=== PATIENT | male | born 1940 | race Caucasian/White ===

== ENCOUNTER → 2018-01-12 09:14 | Outpatient (CLI) | payer MEDICARE, OTHER, SELFPAY ==
[2018-01-12 12:04] LABS: Blood Urea Nitrogen 22 mg/dL (9-20); Calcium 9.6 mg/dL (8.4-10.2); Carbon Dioxide 31 mmol/L (22-32); Chloride 101 mmol/L (98-107); Estimated Glomerular Filt Rate > 60.0 mL/min (>60); Glucose 88 mg/dL (80-110); Potassium 3.6 mmol/L (3.4-5.1); Sodium 142 mmol/L (137-145)
[2018-01-12 12:05] LABS: Alanine Aminotransferase 48 IU/L (21-72); Albumin 4.2 g/dL (3.5-5.0); Albumin Globulin Ratio 1.6 (1.0-2.8); Alkaline Phosphatase 79 U/L (38-126); Aspartate Aminotransferase 40 IU/L (17-59); Bilirubin Total 1.2 mg/dL (0.2-1.3); Cholesterol 170 mg/dL (140-199); Globulin 2.6 g/dL (1.7-4.1); HDL Cholesterol 58 mg/dL (40-60); LDL Cholesterol Calculated 91 mg/dL (<100); Total Protein 6.8 g/dL (6.3-8.2); Triglycerides 104 mg/dL (35-150)
[2018-01-12 12:06] LABS: HEMOLYSIS < 15 (0-50)
== END ==
PROVIDERS: PCP Internal Medicine; Visit Provider Internal Medicine
DX: I10 Essential (primary) hypertension (principal); E78.2 Mixed hyperlipidemia
CPT/HCPCS: 36415; 80053; 80061

== ENCOUNTER → 2018-07-13 08:18 | Outpatient (CLI) | payer MEDICARE, OTHER, SELFPAY ==
[2018-07-13 09:46] LABS: Alanine Aminotransferase 25 IU/L (21-72); Albumin 4.3 g/dL (3.5-5.0); Albumin Globulin Ratio 1.7 (1.0-2.8); Alkaline Phosphatase 82 U/L (38-126); Aspartate Aminotransferase 23 IU/L (17-59); BUN Creatinine Ratio 21.1 (6-22); Bilirubin Total 1.1 mg/dL (0.2-1.3); Blood Urea Nitrogen 19 mg/dL (9-20); Calcium 9.7 mg/dL (8.4-10.2); Carbon Dioxide 27 mmol/L (22-32); Chloride 101 mmol/L (98-107); Cholesterol 163 mg/dL (140-199); Estimated Glomerular Filt Rate > 60.0 mL/min (>60); Globulin 2.5 g/dL (1.7-4.1); Glucose 93 mg/dL (80-110); HDL Cholesterol 53 mg/dL (40-60); HEMOLYSIS < 15 (0-50); LDL Cholesterol Calculated 92 mg/dL (<100); Potassium 3.6 mmol/L (3.4-5.1); Sodium 138 mmol/L (137-145); Total Protein 6.8 g/dL (6.3-8.2); Triglycerides 92 mg/dL (35-150)
== END ==
PROVIDERS: Family Provider Internal Medicine; PCP Internal Medicine; Visit Provider Internal Medicine
DX: E78.2 Mixed hyperlipidemia (principal); I10 Essential (primary) hypertension
CPT/HCPCS: 36415; 80053; 80061

== ENCOUNTER → 2018-10-01 14:28 | Outpatient (CLI) | payer MEDICARE, OTHER, SELFPAY ==
--- NOTE | 2018-10-01 14:33 | DI.RAD.S_ITS ---
PROCEDURE: XR FOOT LT MIN 3V INDICATIONS: Left foot pain TECHNIQUE: 3 views of the foot were acquired. COMPARISON: None. FINDINGS: Bones: No fractures or dislocations. No suspicious bony lesions. Soft tissues: No tibiotalar joint effusion. Achilles tendon appears normal. IMPRESSION: No definite radiographic abnormality. If pain persists, consider cross sectional imaging such as CT or MRI for further assessment. Dictated by: Jovany Wang [facility] Interpreted: Grupo Anthony MD on 10/01/2018 at 17:02 Approved by: Grupo Anthony M.D. on 10/02/2018 at 9:03
== END ==
PROVIDERS: PCP Internal Medicine; Visit Provider Internal Medicine
DX: M79.672 Pain in left foot (principal)
CPT/HCPCS: 73630

== ENCOUNTER → 2019-01-06 08:01 | Outpatient (CLI) | payer MEDICARE, OTHER, SELFPAY ==
[2019-01-06 09:04] LABS: Alanine Aminotransferase 26 IU/L (21-72); Albumin 4.3 g/dL (3.5-5.0); Albumin Globulin Ratio 1.5 (1.0-2.8); Alkaline Phosphatase 97 U/L (38-126); Aspartate Aminotransferase 26 IU/L (17-59); Bilirubin Total 1.4 mg/dL (0.2-1.3); Blood Urea Nitrogen 18 mg/dL (9-20); Calcium 9.7 mg/dL (8.4-10.2); Carbon Dioxide 29 mmol/L (22-32); Chloride 102 mmol/L (98-107); Cholesterol 161 mg/dL (140-199); Estimated Glomerular Filt Rate > 60.0 mL/min (>60); Globulin 2.8 g/dL (1.7-4.1); Glucose 98 mg/dL (80-110); HDL Cholesterol 55 mg/dL (40-60); LDL Cholesterol Calculated 80 mg/dL (<100); Potassium 3.6 mmol/L (3.4-5.1); Sodium 138 mmol/L (137-145); Total Protein 7.1 g/dL (6.3-8.2); Triglycerides 128 mg/dL (35-150)
[2019-01-08 15:07] LABS: HEMOLYSIS < 15 (0-50); Uric Acid 6.6 mg/dL (3.5-8.5)
== END ==
PROVIDERS: PCP Internal Medicine; Visit Provider Internal Medicine
DX: E78.2 Mixed hyperlipidemia (principal); I10 Essential (primary) hypertension
CPT/HCPCS: 36415; 80053; 80061; 84550

== ENCOUNTER → 2019-05-12 11:52 | Outpatient (CLI) | payer MEDICARE, OTHER, SELFPAY ==
[2019-05-12 13:12] LABS: Uric Acid 5.8 mg/dL (3.5-8.5)
== END ==
PROVIDERS: PCP Internal Medicine; Referring Provider Internal Medicine; Visit Provider Internal Medicine
DX: M10.9 Gout, unspecified (principal)
CPT/HCPCS: 36415; 84550

== ENCOUNTER → 2019-07-05 10:03 | Outpatient (CLI) | payer MEDICARE, OTHER, SELFPAY ==
[2019-07-05 11:35] LABS: Alanine Aminotransferase 23 IU/L (<50); Albumin 4.3 g/dL (3.5-5.0); Albumin Globulin Ratio 1.4 (1.0-2.8); Alkaline Phosphatase 92 U/L (38-126); Aspartate Aminotransferase 33 IU/L (17-59); BUN Creatinine Ratio 20.4 (6-22); Bilirubin Total 1.1 mg/dL (0.2-1.3); Blood Urea Nitrogen 20 mg/dL (9-20); Carbon Dioxide 29 mmol/L (22-32); Chloride 104 mmol/L (98-107); Cholesterol 160 mg/dL (140-199); Estimated Glomerular Filt Rate > 60.0 mL/min (>60); Glucose 104 mg/dL (80-110); HDL Cholesterol 57 mg/dL (40-60); HEMOLYSIS < 15 (0-50); LDL Cholesterol Calculated 82 mg/dL (<100); Sodium 139 mmol/L (137-145); Total Protein 7.3 g/dL (6.3-8.2); Triglycerides 104 mg/dL (35-150)
== END ==
PROVIDERS: PCP Internal Medicine; Referring Provider Internal Medicine; Visit Provider Internal Medicine
DX: E78.2 Mixed hyperlipidemia (principal); I10 Essential (primary) hypertension
CPT/HCPCS: 36415; 80053; 80061

== ENCOUNTER → 2019-11-25 08:40 | Outpatient (CLI) | payer MEDICARE, OTHER, SELFPAY ==
[2019-11-25 13:21] LABS: Alanine Aminotransferase 14 IU/L (<50); Albumin 4.2 g/dL (3.5-5.0); Albumin Globulin Ratio 1.6 (1.0-2.8); Alkaline Phosphatase 124 U/L (38-126); Aspartate Aminotransferase 19 IU/L (17-59); BUN Creatinine Ratio 24.8 (6-22); Bilirubin Total 0.9 mg/dL (0.2-1.3); Blood Urea Nitrogen 25 mg/dL (9-20); Calcium 9.4 mg/dL (8.4-10.2); Carbon Dioxide 28 mmol/L (22-32); Chloride 104 mmol/L (98-107); Cholesterol 162 mg/dL (140-199); Estimated Glomerular Filt Rate > 60.0 mL/min (>60); Globulin 2.6 g/dL (1.7-4.1); Glucose 91 mg/dL (80-110); HDL Cholesterol 53 mg/dL (40-60); HEMOLYSIS < 15 (0-50); LDL Cholesterol Calculated 88 mg/dL (<100); Potassium 3.8 mmol/L (3.4-5.1); Sodium 141 mmol/L (137-145); Total Protein 6.8 g/dL (6.3-8.2); Triglycerides 106 mg/dL (35-150)
== END ==
PROVIDERS: PCP Internal Medicine; Referring Provider Internal Medicine; Visit Provider Internal Medicine
DX: E78.2 Mixed hyperlipidemia (principal); I10 Essential (primary) hypertension
CPT/HCPCS: 36415; 80053; 80061

== ENCOUNTER → 2020-11-24 08:22 | Outpatient (CLI) | payer MEDICARE, OTHER, SELFPAY ==
[2020-11-24 10:03] LABS: Alanine Aminotransferase 13 IU/L (<50); Albumin Globulin Ratio 1.5 (1.0-2.8); Alkaline Phosphatase 87 U/L (38-126); Aspartate Aminotransferase 19 IU/L (17-59); BUN Creatinine Ratio 21.3 (6-22); Bilirubin Total 1.2 mg/dL (0.2-1.3); Blood Urea Nitrogen 19 mg/dL (9-20); Calcium 9.6 mg/dL (8.4-10.2); Carbon Dioxide 27 mmol/L (22-32); Chloride 102 mmol/L (98-107); Cholesterol 137 mg/dL (140-199); Estimated Glomerular Filt Rate > 60.0 mL/min (>60); Globulin 2.6 g/dL (1.7-4.1); Glucose 91 mg/dL (80-110); HDL Cholesterol 58 mg/dL (40-60); HEMOLYSIS < 15 (0-50); LDL Cholesterol Calculated 62 mg/dL (<100); Potassium 3.7 mmol/L (3.4-5.1); Sodium 136 mmol/L (137-145); Total Protein 6.6 g/dL (6.3-8.2); Triglycerides 86 mg/dL (35-150)
== END ==
PROVIDERS: PCP Internal Medicine; Referring Provider Internal Medicine; Visit Provider Internal Medicine
DX: I10 Essential (primary) hypertension (principal); E78.2 Mixed hyperlipidemia
CPT/HCPCS: 36415; 80053; 80061

== ENCOUNTER → 2021-05-18 09:09 | Outpatient (CLI) | payer MEDICARE, OTHER, SELFPAY ==
[2021-05-18 10:10] LABS: Alanine Aminotransferase 14 IU/L (<50); Albumin 4.1 g/dL (3.5-5.0); Albumin Globulin Ratio 1.5 (1.0-2.8); Alkaline Phosphatase 79 U/L (38-126); Aspartate Aminotransferase 28 IU/L (17-59); BUN Creatinine Ratio 23.8 (6-22); Bilirubin Total 1.2 mg/dL (0.2-1.3); Blood Urea Nitrogen 24 mg/dL (9-20); Calcium 9.5 mg/dL (8.4-10.2); Carbon Dioxide 32 mmol/L (22-32); Chloride 107 mmol/L (98-107); Cholesterol 144 mg/dL (140-199); Estimated Glomerular Filt Rate > 60.0 mL/min (>60); Globulin 2.8 g/dL (1.7-4.1); Glucose 95 mg/dL (80-110); HDL Cholesterol 50 mg/dL (40-60); HEMOLYSIS < 15 (0-50); LDL Cholesterol Calculated 76 mg/dL (<100); Potassium 3.8 mmol/L (3.4-5.1); Sodium 139 mmol/L (137-145); Total Protein 6.9 g/dL (6.3-8.2); Triglycerides 91 mg/dL (35-150)
== END ==
PROVIDERS: PCP Internal Medicine; Referring Provider Internal Medicine; Visit Provider Internal Medicine
DX: I10 Essential (primary) hypertension (principal); E78.2 Mixed hyperlipidemia
CPT/HCPCS: 36415; 80053; 80061

== ENCOUNTER 2022-11-06 23:01 | Emergency (ER) | payer MEDICARE, OTHER, SELFPAY ==
[2022-11-06 23:06] VITALS: BP 170/93; PULSE 82; RESP 16; TEMP 36.9; O2SAT 98; BMI 26.6
--- NOTE | 2022-11-06 23:43 | ED_ITS ---
HPI - General Adult <Malik Carter DO - Last Filed: 11/11/22 19:08> General Chief complaint: Altered Mental Status Stated complaint: AMS Time Seen by Provider: 11/06/22 23:07 Source: family and EMS Mode of arrival: EMS Limitations: altered mental status History of Present Illness HPI narrative: Patient is an 82-year-old male. Has a history of dementia. Review his medical record shows that he has not had any behavioral disturbances with this. 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 They live at home. His recently had to be admitted to the hospital. Patient's sister and her arrived from out of town to take care of the patient while his was in the hospital. Apparently they have been trying to take care of the patient for the past day or so. They happened staying at a local hotel. I am unsure as to why they have not been staying at the patient's house. Because of the sudden nature of the patient's needing admitted to the hospital his sister and her have had quite a bit of difficulty organizing the patient's medications. Apparently he has been out of medications for the past couple days. This evening they were at hotel. The patient became very aggressive. He is confused but this appears to be baseline. EMS was called. The patient is unable to provide any HPI or review of systems. Patient's family does not know what medications he is supposed to be taking. Related Data Home Medications Medication Instructions Recorded Confirmed ASPIRIN (Aspirin Low Dose) 81 mg PO QDAY ##0 01/29/10 09/30/22 cholecalciferol (vitamin D3) 125 5,000 unit PO ##0 01/03/17 09/30/22 mcg (5,000 unit) capsule cyanocobalamin (vitamin B-12) 5,000 mcg PO ##0 01/03/17 09/30/22 5,000 mcg disintegrating tablet Previous Rx's Medication Instructions Recorded memantine 10 mg tablet 10 mg PO BID #180 tabs 11/20/21 simvastatin 20 mg tablet See Rx Instructions .Route 06/11/22 .COMPLEX #45 tabs galantamine 24 mg 24 hr 24 mg PO QAM #90 caps 10/28/22 capsule,extended release olanzapine 5 mg disintegrating 5 mg PO BID #20 tabs 11/08/22 tablet (Zyprexa Zydis) olanzapine 5 mg disintegrating 5 mg PO QID PRN behavioral 11/08/22 tablet (Zyprexa Zydis) disturbance #30 tabs lorazepam 2 mg tablet 2 mg PO TID PRN agitation #30 tabs 11/11/22 Allergies Allergy/AdvReac Type Severity Reaction Status Date / Time JENNIFER Inhibitors Allergy Mild COUGH/ Verified 09/30/22 13:45 [JENNIFER INHIBITORS] UNSURE/ PATIENT STATES HE DOESN'T HAVE ANY SENSITIVIT atropine [ATROPINE] Allergy Unknown Verified 09/30/22 13:45 Review of Systems <Malik Carter DO - Last Filed: 11/11/22 19:08> Review of Systems ROS Unobtainable: Unobtainable due to mental condition Patient History <Malik Carter DO - Last Filed: 11/11/22 19:08> Medical History Cataracts, bilateral (~2009) Chicken pox Cognitive disorder (08/16/16) Dementia (~2013) Essential hypertension Fecal incontinence Hematuria History of hemodialysis Measles Mixed hyperlipidemia Mumps Restless leg syndrome Seasonal allergies Vision disorder Surgical History (Updated 01/15/18 @ 14:57 by Beau Harris MD) Anesthesia History of eye surgery History of tonsillectomy (~1946) Status post hernia repair (~1989) Status post rotator cuff repair (~1999) Family History (Updated 08/08/16 @ 00:00 by Conversion Provider) Father Family hx-leukemia Cancer Mother Heart disease Alzheimer's disease Sister Family history of MS (multiple sclerosis) Cancer MS (multiple sclerosis) Sister Family history of MS (multiple sclerosis) MS (multiple sclerosis) Brother No problems noted. Brother No problems noted. Social History Smoking Status: Never smoker Smoking Status: Never smoker Exam <Malik Carter DO - Last Filed: 11/11/22 19:08> Initial Vital Signs Initial Vital Signs: Vital Signs Temperature 98.4 F 11/06/22 23:06 Pulse Rate 82 11/06/22 23:06 Respiratory Rate 16 11/06/22 23:06 Blood Pressure 170/93 H 11/06/22 23:06 Pulse Oximetry 98 11/06/22 23:06 Oxygen Delivery Method Room Air 11/06/22 23:06 Const General: comfortable and No ill appearing HENMT Head: normal to inspection Resp Effort & Inspection: normal respiratory effort Auscultation: clear to auscultation bilaterally Cardio Rate: regular rate Rhythm: regular rhythm GI Inspection: normal to inspection Neuro Other: Patient is ambulatory. He does follow commands but speaks just words and sounds. Extrem Other: No gross deformities. <Willa Barron, DO - Last Filed: 11/16/22 18:47> Initial Vital Signs Initial Vital Signs: Vital Signs Temperature 98.4 F 11/06/22 23:06 Pulse Rate 82 11/06/22 23:06 Respiratory Rate 16 11/06/22 23:06 Blood Pressure 170/93 H 11/06/22 23:06 Pulse Oximetry 98 11/06/22 23:06 Oxygen Delivery Method Room Air 11/06/22 23:06 Course <aMlik Carter, DO - Last Filed: 11/11/22 19:08> Orders Ordered: Discontinued Medications Diphenhydramine HCl (Diphenhydramine 50 Mg/Ml Vial) 25 mg IM NOW ONE Stop: 11/07/22 04:02 Last Admin: 11/07/22 04:08 Dose: 25 mg Documented By: CORNELL Diphenhydramine HCl (Diphenhydramine 50 Mg/Ml Vial) 25 mg IM NOW ONE Stop: 11/07/22 13:47 Last Admin: 11/07/22 13:58 Dose: 25 mg Documented By: AVELINO Haloperidol (Haloperidol 5 Mg Tablet) 5 mg PO NOW ONE Stop: 11/07/22 03:38 Last Admin: 11/07/22 07:22 Dose: Not Given Documented By: TORRES Haloperidol (Haloperidol 5 Mg/Ml Vial) 5 mg IM NOW ONE Stop: 11/07/22 03:40 Last Admin: 11/07/22 03:42 Dose: 5 mg Documented By: RENEE Haloperidol (Haloperidol 5 Mg/Ml Vial) 5 mg IM NOW ONE Stop: 11/07/22 13:35 Last Admin: 11/07/22 14:00 Dose: 5 mg Documented By: SPF Lorazepam (Lorazepam 0.5 Mg Tablet) 1 mg PO NOW ONE Stop: 11/07/22 01:27 Last Admin: 11/07/22 01:30 Dose: 1 mg Documented By: SB Lorazepam (Lorazepam 0.5 Mg Tablet) 1 mg PO NOW ONE Stop: 11/07/22 02:43 Last Admin: 11/07/22 03:06 Dose: 1 mg Documented By: RENEE Lorazepam (Lorazepam 2 Mg/Ml Inj) 1 mg IM NOW ONE Stop: 11/07/22 04:02 Last Admin: 11/07/22 04:08 Dose: 1 mg Documented By: CORNELL Lorazepam (Lorazepam 2 Mg/Ml Inj) 2 mg IM NOW ONE Stop: 11/07/22 04:37 Last Admin: 11/07/22 04:40 Dose: 2 mg Documented By: CORNELL Memantine (Memantine Hcl 5 Mg Tablet) 10 mg PO BID [facility] Last Admin: 11/08/22 08:22 Dose: 10 mg Documented By: Admin: 11/08/22 07:56 Dose: Not Given Documented By: Admin: 11/08/22 00:45 Dose: Not Given Documented By: Admin: 11/07/22 00:09 Dose: 10 mg Documented By: RENEE Olanzapine (Olanzapine 2.5 Mg Tablet) 5 mg PO BID [facility] Last Admin: 11/08/22 08:22 Dose: 5 mg Documented By: Admin: 11/07/22 20:45 Dose: 5 mg Documented By: AVELINO Olanzapine (Olanzapine 10 Mg Vial) 5 mg IM NOW ONE Stop: 11/08/22 01:37 Last Admin: 11/08/22 06:00 Dose: Not Given Documented By: KEYUR Olanzapine (Olanzapine Odt 10 Mg Tab) 5 mg PO NOW ONE Stop: 11/08/22 01:42 Last Admin: 11/08/22 01:57 Dose: 5 mg Documented By: KEYUR Olanzapine (Olanzapine 2.5 Mg Tablet) 5 mg PO BID PRN PRN Reason: Agitation Last Admin: 11/08/22 14:16 Dose: 5 mg Documented By: CARLOS Quetiapine Fumarate (Quetiapine 25 Mg Tablet) 25 mg PO NOW ONE Stop: 11/06/22 23:45 Last Admin: 11/07/22 00:10 Dose: 25 mg Documented By: RENEE Vital Signs Vital signs: Vital Signs - 8 hr 11/08/22 07:32 11/08/22 07:35 11/08/22 07:35 Pulse Rate 57 L Blood Pressure Pulse Oximetry 99 99 98 11/08/22 11:41 11/08/22 11:43 11/08/22 11:43 Pulse Rate Blood Pressure 132/62 Pulse Oximetry 98 98 11/08/22 11:45 Pulse Rate 70 Blood Pressure Pulse Oximetry 98 <Willa Barron, DO - Last Filed: 11/16/22 18:47> Orders Ordered: Discontinued Medications Diphenhydramine HCl (Diphenhydramine 50 Mg/Ml Vial) 25 mg IM NOW ONE Stop: 11/07/22 04:02 Last Admin: 11/07/22 04:08 Dose: 25 mg Documented By: CORNELL Diphenhydramine HCl (Diphenhydramine 50 Mg/Ml Vial) 25 mg IM NOW ONE Stop: 11/07/22 13:47 Last Admin: 11/07/22 13:58 Dose: 25 mg Documented By: AVELINO Haloperidol (Haloperidol 5 Mg Tablet) 5 mg PO NOW ONE Stop: 11/07/22 03:38 Last Admin: 11/07/22 07:22 Dose: Not Given Documented By: TORRES Haloperidol (Haloperidol 5 Mg/Ml Vial) 5 mg IM NOW ONE Stop: 11/07/22 03:40 Last Admin: 11/07/22 03:42 Dose: 5 mg Documented By: RENEE Haloperidol (Haloperidol 5 Mg/Ml Vial) 5 mg IM NOW ONE Stop: 11/07/22 13:35 Last Admin: 11/07/22 14:00 Dose: 5 mg Documented By: AVELINO Lorazepam (Lorazepam 0.5 Mg Tablet) 1 mg PO NOW ONE Stop: 11/07/22 01:27 Last Admin: 11/07/22 01:30 Dose: 1 mg Documented By: RENEE Lorazepam (Lorazepam 0.5 Mg Tablet) 1 mg PO NOW ONE Stop: 11/07/22 02:43 Last Admin: 11/07/22 03:06 Dose: 1 mg Documented By: RENEE Lorazepam (Lorazepam 2 Mg/Ml Inj) 1 mg IM NOW ONE Stop: 11/07/22 04:02 Last Admin: 11/07/22 04:08 Dose: 1 mg Documented By: CORNELL Lorazepam (Lorazepam 2 Mg/Ml Inj) 2 mg IM NOW ONE Stop: 11/07/22 04:37 Last Admin: 11/07/22 04:40 Dose: 2 mg Documented By: CORNELL Memantine (Memantine Hcl 5 Mg Tablet) 10 mg PO BID [facility] Last Admin: 11/08/22 08:22 Dose: 10 mg Documented By: Admin: 11/08/22 07:56 Dose: Not Given Documented By: AMDoyle Admin: 11/08/22 00:45 Dose: Not Given Documented By: Admin: 11/07/22 00:09 Dose: 10 mg Documented By: RENEE Olanzapine (Olanzapine 2.5 Mg Tablet) 5 mg PO BID [facility] Last Admin: 11/08/22 08:22 Dose: 5 mg Documented By: Admin: 11/07/22 20:45 Dose: 5 mg Documented By: AVELINO Olanzapine (Olanzapine 10 Mg Vial) 5 mg IM NOW ONE Stop: 11/08/22 01:37 Last Admin: 11/08/22 06:00 Dose: Not Given Documented By: KEYUR Olanzapine (Olanzapine Odt 10 Mg Tab) 5 mg PO NOW ONE Stop: 11/08/22 01:42 Last Admin: 11/08/22 01:57 Dose: 5 mg Documented By: KEYUR Olanzapine (Olanzapine 2.5 Mg Tablet) 5 mg PO BID PRN PRN Reason: Agitation Last Admin: 11/08/22 14:16 Dose: 5 mg Documented By: CARLOS Quetiapine Fumarate (Quetiapine 25 Mg Tablet) 25 mg PO NOW ONE Stop: 11/06/22 23:45 Last Admin: 11/07/22 00:10 Dose: 25 mg Documented By: RENEE Vital Signs Vital signs: Vital Signs - 8 hr 11/08/22 07:32 11/08/22 07:35 11/08/22 07:35 Pulse Rate 57 L Blood Pressure Pulse Oximetry 99 99 98 11/08/22 11:41 11/08/22 11:43 11/08/22 11:43 Pulse Rate Blood Pressure 132/62 Pulse Oximetry 98 98 11/08/22 11:45 Pulse Rate 70 Blood Pressure Pulse Oximetry 98 Medical Decision Making <Malik Carter DO - Last Filed: 11/11/22 19:08> Medical Records Medical records reviewed: Yes I reviewed the patient's medical records. Lab Data Lab results reviewed: Yes I reviewed the patient's lab results. 11/07/22 00:08 11/07/22 00:08 Labs: Lab Results 11/07/22 11/07/22 Range/Units 00:08 00:08 WBC 10.0 (4.5-11.0) X10^3/uL RBC 4.09 L (4.5-5.9) X10^6/uL Hgb 13.5 (13.5-17.5) g/dL Hct 39.3 L (41-53) % MCV 96.2 (80-100) fL MCH 33.1 (26-34) PG MCHC 34.4 (30-36) % RDW 13.8 (11.6-14.8) % Plt Count 113 L (150-400) X10^3/uL Neut % (Auto) 66.8 (50-75) % Lymph % (Auto) 19.9 L (25-40) % Owen % (Auto) 10.3 (3-14) % Eos % (Auto) 2.2 (2-4) % Baso % (Auto) 0.8 (0-2) % Neut # (Auto) 6700 (9447-1862) /uL Lymph # (Auto) 2000 (7823-5745) /uL Owen # (Auto) 1000 H (0-900) /uL Eos # (Auto) 200 (0-450) /uL Baso # (Auto) 100 (0-100) /uL Plt Morphology Comment * RBC Morphology Normal morphology Sodium 134 L (137-145) mmol/L Potassium 3.7 (3.4-5.1) mmol/L Chloride 105 (98-107) mmol/L Carbon Dioxide 22 (22-32) mmol/L BUN 25 H (9-20) mg/dL Creatinine 0.88 (0.66-1.25) mg/dL Estimated GFR > 60 (>60) mL/min BUN/Creatinine Ratio 28.4 H (6-22) Glucose 99 (80-110) mg/dL Calcium 8.6 (8.4-10.2) mg/dL Point of Care Testing Glucose POC 115 Urine Dip Bedside Urine Glucose Negative Bedside Urine Bilirubin - Negative Bedside Urine Ketone - Negative Urine Specific [place] 1.015 Bedside Urine Occult Blood - Negative Bedside Urine pH 6.0 Bedside Urine Protein - Negative Bedside Urine Urobilinogen - Negative Bedside Urine Nitrite - Negative Bedside Urine Leukocytes - Negative Esterase Point of care testing: Point of Care Testing Glucose POC 115 Urine Dip Bedside Urine Glucose Negative Bedside Urine Bilirubin - Negative Bedside Urine Ketone - Negative Urine Specific [place] 1.015 Bedside Urine Occult Blood - Negative Bedside Urine pH 6.0 Bedside Urine Protein - Negative Bedside Urine Urobilinogen - Negative Bedside Urine Nitrite - Negative Bedside Urine Leukocytes - Negative Esterase Imaging Data CT - cervical spine: Radiologist's Impression: PROCEDURE:? CT CERVICAL SPINE WO CON ? INDICATIONS:? fall ? TECHNIQUE:? Noncontrast 3 mm thick sections acquired from the skull base to the T4 level.? Sagittal and coronal reformats were then constructed.? For radiation dose reduction, the following was used:? automated exposure control, adjustment of mA and/or kV according to patient size.? ? COMPARISON:? None. ? FINDINGS:? Image quality:? Excellent.? ? Bones:? No fractures or subluxation.? There is multilevel degenerative disc disease and facet arthropathy.? Visualized superior ribs are intact.? ? Soft tissues:? Prevertebral soft tissues are normal in thickness.? No paravertebral hematomas.? No apical pneumothoraces.? ? ? IMPRESSION:? ? 1. No acute fracture or subluxation.? CTA - brain/neck: Radiologist's Impression: PROCEDURE:? CT HEAD/BRAIN WO CON ? INDICATIONS:? fall ? TECHNIQUE:? Noncontrast 4.5 mm thick angled axial sections acquired from the foramen magnum to the vertex, with coronal and sagittal reformats.? For radiation dose reduction, the following was used:? automated exposure control, adjustment of mA and/or kV according to patient size.? ? COMPARISON:? None. ? FINDINGS:? Image quality:? Diagnostic.? ? CSF spaces:? Basal cisterns are patent.? No extra-axial fluid collections.? There is moderate cerebral volume loss, with resultant ventricular and sulcal prom inence.? ? Brain:? No intracranial hemorrhage, mass, or mass effect.? There are subcortical, periventricular and deep white matter hypodensities consistent with moderate chronic small vessel ischemic changes.? The whipple-white matter junction appears preserved.? There is intracranial internal carotid artery atherosclerosis.? ? Skull and face:? Calvarium and visualized facial bones appear intact, without suspicious lesions.? ? Sinuses:? Visualized sinuses and mastoids are clear.? ? IMPRESSION:? ? 1. No acute intracranial abnormality. ? 2. Moderate cerebral volume loss and chronic white matter small vessel ischemic changes. [facility] Narrative Medical decision making narrative: Review the patient's medical record shows that he is on some long-term Alzheimer's disease medications but does not appear to be on any behavioral mo dification medications such as Seroquel. Initially upon arrival the patient was calm. He was directable but did seem to be very impulsive. He was given a dose of Seroquel. Over the course of his stay here in the emergency department he did have a period of time where he became very acutely agitated. We attempted multiple different medications to include Haldol and Benadryl and also multiple doses of Ativan. After an extended period of time and multiple aliquots of small doses of medication the patient did become more sedated. He then rested comfortably. His labs are unremarkable. According to his last primary doctor's note I feel that the patient is most likely at baseline with regard to his mental status. There was no indication for admission to the hospital. Feel that it is unsafe to discharge the patient home in his current living situation. Social work consult placed. Care turned over to day provider to follow-up and disposition. 11/07/22 Mank: Patient slept for most of the day, [facility] did speak with family. They are looking into memory care which is likely the best place for this individual. Patient did become somewhat agitated during the daytime not to the level he was overnight but was refusing oral medications so was given additional dose of IM Haldol and Benadryl. Dr. Levy was unable to come to the department but did give recommendations over the phone and suspect the patient has dementia and some reported prior behavioral issues being out of his normal environment, his is currently in the hospital and he is with new and different people on a regular basis has caused him to be more reactive than typical. He recommends olanzapine ODT 5 mg b.i.d. with 5 mg as needed. [facility] spoke with family will monitor overnight. Patient signed out to Dr. Carter. Dr carter: Received turned over. Reviewed the patient's events throughout the day. Earlier in the evening the patient did a unwitnessed fall in his room. He would crawled out of bed on his own despite both guard rails being up and the bed being in a slightly Trendelenburg position. Patient had obviously urinated on himself most likely prior to him getting up and falling. Initially there was no apparent injury. A head CT and cervical spine CT were ordered and this did not show any acute pathology. Patient did not have any apparent extremity injuries. He was able to stand on his own afterwards with some help. Patient has been calm since that time. He did tolerate a small amount of intake. Care was turned over to Dr. barron to continue to observe and disposition. <Willa Barron, DO - Last Filed: 11/16/22 18:47> Lab Data Labs: Lab Results 11/07/22 11/07/22 Range/Units 00:08 00:08 WBC 10.0 (4.5-11.0) X10^3/uL RBC 4.09 L (4.5-5.9) X10^6/uL Hgb 13.5 (13.5-17.5) g/dL Hct 39.3 L (41-53) % MCV 96.2 (80-100) fL MCH 33.1 (26-34) PG MCHC 34.4 (30-36) % RDW 13.8 (11.6-14.8) % Plt Count 113 L (150-400) X10^3/uL Neut % (Auto) 66.8 (50-75) % Lymph % (Auto) 19.9 L (25-40) % Owen % (Auto) 10.3 (3-14) % Eos % (Auto) 2.2 (2-4) % Baso % (Auto) 0.8 (0-2) % Neut # (Auto) 6700 (3560-6680) /uL Lymph # (Auto) 2000 (7674-4583) /uL Owen # (Auto) 1000 H (0-900) /uL Eos # (Auto) 200 (0-450) /uL Baso # (Auto) 100 (0-100) /uL Plt Morphology Comment * RBC Morphology Normal morphology Sodium 134 L (137-145) mmol/L Potassium 3.7 (3.4-5.1) mmol/L Chloride 105 (98-107) mmol/L Carbon Dioxide 22 (22-32) mmol/L BUN 25 H (9-20) mg/dL Creatinine 0.88 (0.66-1.25) mg/dL Estimated GFR > 60 (>60) mL/min BUN/Creatinine Ratio 28.4 H (6-22) Glucose 99 (80-110) mg/dL Calcium 8.6 (8.4-10.2) mg/dL Point of Care Testing Glucose POC 115 Urine Dip Bedside Urine Glucose Negative Bedside Urine Bilirubin - Negative Bedside Urine Ketone - Negative Urine Specific [place] 1.015 Bedside Urine Occult Blood - Negative Bedside Urine pH 6.0 Bedside Urine Protein - Negative Bedside Urine Urobilinogen - Negative Bedside Urine Nitrite - Negative Bedside Urine Leukocytes - Negative Esterase Point of care testing: Point of Care Testing Glucose POC 115 Urine Dip Bedside Urine Glucose Negative Bedside Urine Bilirubin - Negative Bedside Urine Ketone - Negative Urine Specific [place] 1.015 Bedside Urine Occult Blood - Negative Bedside Urine pH 6.0 Bedside Urine Protein - Negative Bedside Urine Urobilinogen - Negative Bedside Urine Nitrite - Negative Bedside Urine Leukocytes - Negative Esterase MDM Narrative Medical decision making narrative: Review the patient's medical record shows that he is on some long-term Alzheimer's disease medications but does not appear to be on any behavioral modification medications such as Seroquel. Initially upon arrival the patient was calm. He was directable but did seem to be very impulsive. He was given a dose of Seroquel. Over the course of his stay here in the emergency department he did have a period of time where he became very acutely agitated. We attempted multiple different medications to include Haldol and Benadryl and also multiple doses of Ativan. After an extended period of time and multiple aliqu ots of small doses of medication the patient did become more sedated. He then rested comfortably. His labs are unremarkable. According to his last primary doctor's note I feel that the patient is most likely at baseline with regard to his mental status. There was no indication for admission to the hospital. Feel that it is unsafe to discharge the patient home in his current living situation. Social work consult placed. Care turned over to day provider to follow-up and disposition. 11/07/22 Mank: Patient slept for most of the day, [facility] did speak with family. They are looking into memory care which is likely the best place for this individual. Patient did become somewhat agitated during the daytime not to the level he was overnight but was refusing oral medications so was given additional dose of IM Haldol and Benadryl. Dr. Levy was unable to come to the department but did give recommendations over the phone and suspect the patient has dementia and some reported prior behavioral issues being out of his normal environment, his is currently in the hospital and he is with new and different people on a regular basis has caused him to be more reactive than typical. He recommends olanzapine ODT 5 mg b.i.d. with 5 mg as needed. [facility] spoke with family will monitor overnight. Patient signed out to Dr. Carter. Dr carter: Received turned over. Reviewed the patient's events throughout the day. Earlier in the evening the patient did a unwitnessed fall in his room. He would crawled out of bed on his own despite both guard rails being up and the bed being in a slightly Trendelenburg position. Patient had obviously urinated on himself most likely prior to him getting up and falling. Initially there was no apparent injury. A head CT and cervical spine CT were ordered and this did not show any acute pathology. Patient did not have any apparent extremity inju andrew. He was able to stand on his own afterwards with some help. Patient has been calm since that time. He did tolerate a small amount of intake. Care was turned over to Dr. barron to continue to observe and disposition. 11/08/22 Robby: Patient signed out to myself overnight. Patient was reported to have night. He did have head CT and C-spine which not show any acute change or no apparent disabilities. Was able to stand afterwards reportedly with some help. Patient did take his oral Zyprexa last dose was at 2:00 a.m. she did take at that time. Last dose of IM medications was yesterday at 2:00 p.m. patient has not been very agreeable to tablets which is why ODT medication was ordered. I did speak with patient's family this morning, his is upstairs they are planning to pick her up and take her to family member's house with hospice until bed is available to facility for a week. Their goal is to warehouse picker the patient today and take him with them. We did review that we have added the new medication that it is to be given twice daily regardless of symptoms and that they can have additional PRN dose of up to 20 mg or 4 doses total in a 24 hour. They have had quite a bit of extensive discussion with [facility] here in the department yesterday. Patient's family here after meeting with social work up stairs with patient's . They were initially reluctant to take patient but found facility that can provide respite care, patient was discharged home to family. He has had at least 2 doses of oral medication and was able to be dressed, eat add much more appropriate than when he initially was here in the department and feels appropriate for discharge home with family at this time. Discussed that if they feel unsafe or have other concerns at any time to return here or to the closest emergency department. Discharge Plan Departure Patient Disposition: Home Clinical Impression: Dementia with behavioral disturbance Activity Restrictions/Additional Instructions: Continue your home prescribed medications. A prescription for Zyprexa 5 mg twice daily has been sent to [facility] in [place]. This medication 2 centigrade rapidly in the mouth and does not require sw allowing. You can get an additional 5 mg of Zyprexa up to every 6 hours. Maximum dose for 24 hours is 20 mg. Please return or go to the closest facility for fevers, sudden changes in mental status, difficulty with breathing, vomiting, black or bloody stools, patient is having difficulty with urination, or if there behavior is becoming unsafe for you or themselves at any time. Prescriptions: New olanzapine [Zyprexa Zydis] 5 mg tablet,disintegrating 5 mg PO QID PRN (Reason: behavioral disturbance) Qty: 30 0RF Rx Instructions: Please give 5 mg p.o. b.i.d. regardless of symptoms you may give an ad ditional 5 mg every 6 hours as needed for a total of 20 mg in 24 hours. olanzapine [Zyprexa Zydis] 5 mg tablet,disintegrating 5 mg PO BID Qty: 20 0RF Rx Instructions: 5 mg p.o. b.i.d. regardless of symptoms, patient can have an additional 5 mg every 6 hours for a total of 20 mg in 24 hours. No Action ASPIRIN (Aspirin Low Dose) 81 mg PO QDAY Qty: 0 cholecalciferol (vitamin D3) 5,000 UNIT capsule 5,000 unit PO Qty: 0 cyanocobalamin (vitamin B-12) 5,000 MCG tablet,disintegrating 5,000 mcg PO Qty: 0 memantine 10 mg tablet 10 mg PO BID Qty: 180 3RF simvastatin 20 mg tablet See Rx Instructions .ROUTE .COMPLEX Qty: 45 1RF Dose Instruction: Take 1/2 (one-half) tablet by mouth once daily Rx Instructions: Take 1/2 (one-half) tablet by mouth once daily galantamine 24 mg capsule,ext rel. pellets 24 hr 24 mg PO QAM Qty: 90 3RF lorazepam 2 mg tablet 2 mg PO TID PRN (Reason: agitation) Qty: 30 2RF Referrals: Beau Harris MD [Primary Care Provider] - Stand Alone Forms: Patient Portal/API
--- NOTE | 2022-11-06 23:45 | PC.NURSE ---
[id number], Nelly and her , Steven are present shortly after patient arrived via EMS. They provided information about patient's living situation and health hx. At the time they left to go back to hotel to rest they took patient's personal belongings bag. Patient does not have any personal belongings on him besides the clothing he is wearing. Steven and Nelly can be reached tonight if needed at #[phone] They plan to return tomorrow morning around 0700.
[2022-11-07] VITALS (61 sets, daily range): PULSE 62–100; RESP 12–24; O2SAT 94–99
--- NOTE | 2022-11-07 | PC.NURSE ---
Patient is oriented to self only, he is calm and resting on gurney. Per family his current mentation is baseline. Patient does not appear to be in any distress. He has no obvious wounds/trauma. Patient denies any pain. Patient's lungs clear on auscultation, denies any recent cough.
[2022-11-07] MEDS: MEMANTINE HCL 5 MG TABLET 10 MG PO (00:09)
[2022-11-07] MEDS: QUETIAPINE 25 MG TABLET PO (00:10)
--- NOTE | 2022-11-07 00:14 | PC.NURSE ---
Patient tolerated blood draw very well and provided a urine sample. All sent to lab. Patient provided water at bedside and offered food which he declined. Family reported prior to them leaving that patient ate a large meal at dinner time. Patient took medications tonight with no difficulty. He is currently resting on gurney in room 6 directly across from nurses station, curtain open for frequent staff rounding.
[2022-11-07 00:27] LABS: Basophils Absolute Auto 100 /uL (0-100); Basophils Percent Auto 0.8 % (0-2); Eosinophils Absolute Auto 200 /uL (0-450); Eosinophils Percent Auto 2.2 % (2-4); Hematocrit 39.3 % (41-53); Hemoglobin 13.5 g/dL (13.5-17.5); Lymphocytes Absolute Auto 2000 /uL (1100-4500); Lymphocytes Percent Auto 19.9 % (25-40); Mean Corpuscular HGB Conc 34.4 % (30-36); Mean Corpuscular Hemoglobin 33.1 PG (26-34); Mean Corpuscular Volume 96.2 fL (80-100); Monocytes Absolute Auto 1000 /uL (0-900); Monocytes Percent Auto 10.3 % (3-14); Neutrophils Absolute Auto 6700 /uL (1500-7000); Neutrophils Percent Auto 66.8 % (50-75); Platelet Count 113 X10^3/uL (150-400); Red Blood Cell Count 4.09 X10^6/uL (4.5-5.9); Red Cell Distribution Width 13.8 % (11.6-14.8)
[2022-11-07 00:28] LABS: Add Manual Diff / Slide Review SLIDE REVIEW
[2022-11-07 00:34] LABS: BUN Creatinine Ratio 28.4 (6-22); Blood Urea Nitrogen 25 mg/dL (9-20); Calcium 8.6 mg/dL (8.4-10.2); Carbon Dioxide 22 mmol/L (22-32); Chloride 105 mmol/L (98-107); Estimated Glomerular Filt Rate > 60 mL/min (>60); Glucose 99 mg/dL (80-110); HEMOLYSIS 16 (0-50); Potassium 3.7 mmol/L (3.4-5.1); Sodium 134 mmol/L (137-145)
[2022-11-07 01:06] LABS: RBC Morphology Normal Morphology
[2022-11-07] MEDS: LORazepam 0.5 MG TABLET 1 MG PO ×2 (01:30→03:06)
--- NOTE | 2022-11-07 01:41 | PC.NURSE ---
Patient frequently exiting room, ambulating in hallway, staff have assisted patient to bathroom where he was able to urinate again. Patient has been redirected back to room and offered food and different beverages. Patient declined all. Patient becoming more difficult to redirect and requiring 1:1 staff supervision for safety as patient continues to want to wander. Patient has taken oral Ativan and drank some water. DIALYSIS TECHNICIAN currently sitting in room with patient. Patient sitting on bed speaking with DIALYSIS TECHNICIAN.
--- NOTE | 2022-11-07 03:06 | PC.NURSE ---
Patient continues to wander in room and making frequent trips to bathroom. He is assisted 1:1 with EDGE FINISHER while he is out of bed for safety. Patient appears very tired and encouraged to rest on gurney by staff. Instead patient will mumble incomplete sentences and refold linen on bed and rearrange folded linen. Staff attempted to put of a movie for patient to watch, this did not help with patient's restlessness. Patient has remained calm during his time in the ER thus far and has not shown any aggressive behaviors. EDGE FINISHER continues to stay 1:1 with patient for safety.
[2022-11-07] MEDS: HALOPERIDOL 5 MG/ML VIAL IM ×2 (03:42→14:00)
--- NOTE | 2022-11-07 03:45 | PC.NURSE ---
Patient pacing in room and began inspecting bed rails on [place] stating that they were broken. Patient becoming more agitated and trying to lift and lower bed rail repeatedly. Staff concerned for patient injuring self and concerned for safety standing/ambulating given the medications that he has received. Staff attempted to redirect patient to rest on gurney. This was unsuccessful and only caused patient to become more agitated and aggressive. Patient then lowered himself to ground near sink and began inspecting the biohazard bin. Patient not following any instructions given by staff and attempts made to assist patient off the floor, patient then began yelling at staff and swinging arms at staff. He then began kicking up towards staff in room. Additional staff entered to assist with patient, he was assisted off the floor by 4 staff members and directed to the [place] and assisted to a supine position. During this, patient continued to try and swing at staff if his arm was not held by staff, he continued to kick out and attempt to bite staff. MD present and assisting, CAREY Zuñiga given. 4 staff members remain with patient.
[2022-11-07] MEDS: diphenhydrAMINE 50 MG/ML VIAL 25 MG IM ×2 (04:08→13:58)
[2022-11-07] MEDS: LORazepam 2 MG/ML INJ 1 MG IM (04:08)
--- NOTE | 2022-11-07 04:10 | PC.NURSE ---
Patient continues to try and exit bed. When staff intervene and redirect patient he attempts to swing and kick at staff. Currently he continues to require 4 staff assist to keep patient and staff members safe. MD present and additional IM medication given, Benadryl and Ativan, see eMAR.
[2022-11-07] MEDS: LORazepam 2 MG/ML INJ IM (04:40)
--- NOTE | 2022-11-07 05:00 | PC.NURSE ---
Patient still requiring 4 staff members to be present at bedside. Patient continues to try and exit bed and swing and kick at staff when redirected or encouraged to rest. Patient does not follow commands and continues to yell out and is restless. Staff remain present for safety, at times required to hold patients extremities to keep him for hitting and kicking staff.
--- NOTE | 2022-11-07 05:40 | PC.NURSE ---
Patient beginning to calm over the last 30 minutes, staff able to leave bedside. Patient placed on lead performance support analyst, see TERESE for vitals. He has regular, unlabored respirations and is on RA. Curtain pulled open and door fully open for staff to frequently round on patient.
--- NOTE | 2022-11-07 07:36 | PC.NURSE ---
Patient continues to sleep, regular and unlabored respirations noted. Patient is on RA. Cardiac/respiratory monitoring continues. Report given to PALAK Anderson who is assuming care for day shift.
--- NOTE | 2022-11-07 09:57 | PC.NURSE ---
spoke with provider. morning dose of nemenda to be given once patient is awake. no need to wake him for this medication.
--- NOTE | 2022-11-07 13:45 | PC.NURSE ---
Patient grabbing onto siderails of the bed. I went in to attempt to give him his daily medications but patient became more aggressive, reaching at me to grab. Pt does not respond to my questions. His bed is wet and pt refuses to let me help him change his bed or his clothing. Pt hanging off the foot of the bed while I hang onto his arm. Pt thrashing and trying to walk but cannot safely do so. Provider was made aware, new orders see MAR.
--- NOTE | 2022-11-07 14:11 | PC.NURSE ---
patient disoriented and grabbing onto side rails trying to get out of bed. HR 85, respirations 20. WCTM
--- NOTE | 2022-11-07 15:37 | PC.NURSE ---
Another STATION ATTENDANT and myself attempted to change patient's wet bedding while he sleeps. Patient tolerated removing his underwear before he started swinging his arms at us. Pt was placed in a brief and green padded chux pad. He is now laying back in bed resting. He does not tolerate the SPO2 probe on his finger. Will continue to attempt to maintain o2 probe.
--- NOTE | 2022-11-07 17:17 | PC.NURSE ---
Patients family members that are supposed to be taking him home tomorrow came in asking for an update. I let them know how patient is doing. They did bring a bottle of galantamine ER 24MG capsules [address] skinner. Meds were placed in the ER lock box in the med room.
--- NOTE | 2022-11-07 18:32 | CM.SWNOTE ---
ED GAS APPLIANCE SERVICER HELPER Assessment Note Patient is 82 y/o male who presents to ED via EMS due to concern for Dementia and behavioral disturbances.. [facility] while spouse is admitted at this hospital after GLF/found down for two days. Spouse is caregiver for patient and has advanced breast cancer with DCP plans to d/c with hospice with family tomorrow. There is concern that patient has not been taking his prescribed medication for several days. There is reported concern that patient's and spouse's house is cluttered and a possible hoarding situation. Patient's PCP is Dr. Harris, patient has Medicare and [employer] [facility] [place]. Patient has hx of Dementia, Mixed hyperlipidemia, essential hypertension, and cognitive disorder. Patient is A/Ox0, has been boarding in ED for almost 20 hours, several attempts to try to leave bed, agitated at times requiring chemical restraint. GAS APPLIANCE SERVICER HELPER reviews patient with DCP GAS APPLIANCE SERVICER HELPER regarding patient's spouse and POC as previously discussed with family. It is reported that son in law Tan (from [place]) is DPOA for patient and planning to flower buncher or picker spouse and move her to his house. It is reported that family is seeking memory care facilities in the [facility] area for patient. GAS APPLIANCE SERVICER HELPER contacts Psychiatry and requests consult for patient for medication management. GAS APPLIANCE SERVICER HELPER calls Tan (Ph. # [phone]) he reports that his spouse Ailyn (Ph. # [phone]) has been calling Memory care facilities seeking placement for patient. GAS APPLIANCE SERVICER HELPER explains that patient will not be able to transfer from ED to memory care facility and will likely need stabilization, and evaluation with facility prior to acceptance. GAS APPLIANCE SERVICER HELPER explains that patient will not be able to board in ED until placement as facilities do not typically accept patient from ED due to concern for lack of stability requiring an ED encounter. Tan endorses that he will be picking up his mom (patient's spouse) tomorrow morning, GAS APPLIANCE SERVICER HELPER inquires that son-in-law flower buncher or picker patient when he picks up his mother. GAS APPLIANCE SERVICER HELPER endorses that the ED provider and psychiatry are attempting to manage patient's medications and behavior. GAS APPLIANCE SERVICER HELPER provides ED GAS APPLIANCE SERVICER HELPER phone number and requests that patient's spouse contact GAS APPLIANCE SERVICER HELPER in regards to Memory care facilities she is interested in for patient. GAS APPLIANCE SERVICER HELPER calls patient's nephew Steven (Ph. # [phone]) it is reported that patient attempts to try to bite and kick and step on him and his while staying in hotel room. It is reported that they contacted patient's PCP office and requested refills for his medication. It is Steven's understanding that patient's son in law Tan will flower buncher or picker patient and spouse tomorrow from hospital upon spouse's d/c and take them both to Tan's house while attempting to seek memory care placement. GAS APPLIANCE SERVICER HELPER meets with Steven and Nelly (Steven's ) and when present with them they call Tan and GAS APPLIANCE SERVICER HELPER reiterates that patient will likely need to d/c with his spouse as the plan is for patient to reside in memory care unit in the area where Tan lives ([facility]). Tan indicates understanding, Steven indicates understanding. Steven reports that they reside in [place] and are planning to return home soon but will come back to check on patient. Tan reports that his spouse Ailyn has been looking into memory care facilities, GAS APPLIANCE SERVICER HELPER and Steven request call from Ailyn to inquire about facility details. GAS APPLIANCE SERVICER HELPER explains that GAS APPLIANCE SERVICER HELPER can coordinate with facilities and fax patient information to start the process. Steven receives call from Ailyn with GAS APPLIANCE SERVICER HELPER present. Ailyn reports she is touring [facility] in [place] today. Ailyn reports that she tried to contact [facility] but they will not have an opening for two weeks. GAS APPLIANCE SERVICER HELPER endorses that GAS APPLIANCE SERVICER HELPER will contact and fax information to [facility] to coordinate transfer. GAS APPLIANCE SERVICER HELPER calls [facility] and speaks with admissions. (Ph. # [phone]). Admissions confirms opening in Memory care unit and that they are meeting with patient's family member today. GAS APPLIANCE SERVICER HELPER gathers fax number ([phone]), GAS APPLIANCE SERVICER HELPER faxes clinicals for review. It is reported that they will not have an opening until the end of next week for patient and patient will need furniture for unit and evaluation prior to acceptance for facility. It is reported to GAS APPLIANCE SERVICER HELPER when GAS APPLIANCE SERVICER HELPER calls Psychiatry that Dr. Levy contacted ED provider Dr. Bustamante with medication recommendations for patient. GAS APPLIANCE SERVICER HELPER receives voicemail from patient's daughter in law Ailyn that they are going to move forward with placement at [facility] and they cannot accept patient until next Friday. This GAS APPLIANCE SERVICER HELPER has told several family members that patient will unable to be boarding in ED until patient is accepted at memory care facility. Plan: patient's son in law Tan to flower buncher or picker patient tomorrow upon medical clearance when he picks up his mother/patient's spouse in acute care, patient to transfer to Memory care facility upon family plan next week. Spouse to reside with son Tan Chastity Robert, SUPPORT ASSOCIATE
--- NOTE | 2022-11-07 19:46 | PC.NURSE ---
Addendum entered by Stephen Bernabe R.N. 11/07/22 19:46: Patient combative and swings at staff when attempting to get out of bed. Original Note: Patient has not eaten breakfast or lunch meals today. Patient will not open his mouth to eat and tries to get out of bed to walk around.
--- NOTE | 2022-11-07 20:16 | PC.NURSE ---
Patient fell out of bed between the pull out drawers at the foot of the bed. Patient was unwitnessed during the fall. Pt was found laying down on his right side on the ground at foot of the bed. Provider was at the bedside immediately. There were no lacerations or abrasions visible to patient. It is unclear if he hit his head as there were no visible swelling at the time, WCTM. Patient was conscious immediately after the fall with no evidence of LOC. He was assisted to a sitting position on the ground before myself and the ER provider were able to help patient up to stand, then take 10 steps over to the bed.
[2022-11-07] MEDS: OLANZapine 2.5 MG TABLET 5 MG PO (20:45)
--- NOTE | 2022-11-07 20:59 | PC.NURSE ---
Patient has been refusing to take PO medication. He has not eaten breakfast or lunch. Tonight patient was given 3x bite size pieces of cheeseburger with pickle, lettuce, and bun. Medication ( See MAR) has been given in those 3x bites and patient successfully swallowed medications using this method.
--- NOTE | 2022-11-07 21:15 | PC.NURSE ---
Patient became agitated and started to get out of bed. SERVICE MANAGER and nurse assisted patient to stand at bedside to use a urinal. Patient missed the urinal but was able to urinate. Pt also taken to the commode while out of bed, he did not have a bowel movement but did pass elvie. His brief was changed and assisted back into bed to lay down. Once laying down, patient reached to the left side of his neck with his hand and states Ouch, my neck!. Provider made aware of his neck pain post fall.
--- NOTE | 2022-11-07 21:48 | DI.CT.S_ITS ---
PROCEDURE: CT CERVICAL SPINE WO CON INDICATIONS: fall TECHNIQUE: Noncontrast 3 mm thick sections acquired from the skull base to the T4 level. Sagittal and coronal reformats were then constructed. For radiation dose reduction, the following was used: automated exposure control, adjustment of mA and/or kV according to patient size. COMPARISON: None. FINDINGS: Image quality: Excellent. Bones: No fractures or subluxation. There is multilevel degenerative disc disease and facet arthropathy. Visualized superior ribs are intact. Soft tissues: Prevertebral soft tissues are normal in thickness. No paravertebral hematomas. No apical pneumothoraces. IMPRESSION: 1. No acute fracture or subluxation. Dictated by: Ruben Timmons M.D. on 11/07/2022 at 22:45 Approved by: Ruben Timmons M.D. on 11/07/2022 at 22:52
--- NOTE | 2022-11-07 21:48 | DI.CT.S_ITS ---
PROCEDURE: CT HEAD/BRAIN WO CON INDICATIONS: fall TECHNIQUE: Noncontrast 4.5 mm thick angled axial sections acquired from the foramen magnum to the vertex, with coronal and sagittal reformats. For radiation dose reduction, the following was used: automated exposure control, adjustment of mA and/or kV according to patient size. COMPARISON: None. FINDINGS: Image quality: Diagnostic. CSF spaces: Basal cisterns are patent. No extra-axial fluid collections. There is moderate cerebral volume loss, with resultant ventricular and sulcal prominence. Brain: No intracranial hemorrhage, mass, or mass effect. There are subcortical, periventricular and deep white matter hypodensities consistent with moderate chronic small vessel ischemic changes. The whipple-white matter junction appears preserved. There is intracranial internal carotid artery atherosclerosis. Skull and face: Calvarium and visualized facial bones appear intact, without suspicious lesions. Sinuses: Visualized sinuses and mastoids are clear. IMPRESSION: 1. No acute intracranial abnormality. 2. Moderate cerebral volume loss and chronic white matter small vessel ischemic changes. Dictated by: Ruben Timmons M.D. on 11/07/2022 at 22:43 Approved by: Ruben Timmons M.D. on 11/07/2022 at 22:45
--- NOTE | 2022-11-07 22:09 | PC.NURSE ---
LABORER CONSTRUCTION OR LEAK GANG accompanied patient to CT to help transfer.
[2022-11-08] VITALS (13 sets, daily range): BP systolic 132–188; BP diastolic 62–96; PULSE 56–94; O2SAT 94–99
--- NOTE | 2022-11-08 01:11 | PC.NURSE ---
*EDUCATIONAL AUDIOLOGIST note* pt is becoming agitated, pt tried kicking this EDUCATIONAL AUDIOLOGIST when trying to re-place o2 probe
[2022-11-08] MEDS: OLANZapine ODT 10 MG TAB 5 MG PO (01:57)
--- NOTE | 2022-11-08 06:15 | PC.NURSE ---
He continues to only occasionally obey any command,his words are garbled and he is often very restless and pulling at his briefs.
[2022-11-08] MEDS: MEMANTINE HCL 5 MG TABLET 10 MG PO (08:22)
[2022-11-08] MEDS: OLANZapine 2.5 MG TABLET 5 MG PO ×2 (08:22→14:16)
--- NOTE | 2022-11-08 14:55 | CM.SWNOTE ---
JD EDWARDS DEVELOPER Note JD EDWARDS DEVELOPER, RN and ED provider speak with family when they arrive, family including nephew Steven and DPOA son Tan. Family states that they will not be picking up patient upon d/c as he does not have memory care placement at [facility] until next week. JD EDWARDS DEVELOPER and ED team explain that patient is medically clear for d/c, he cannot board in ED and he does not meet medical criteria for admission. JD EDWARDS DEVELOPER provides family with list of caregivers, respite facilities and memory care facilities in the [facility]. Tan's spouse Ailyn enters ED and reports that she has found a facility called [facility] in [place] that has openings for memory care respite today. JD EDWARDS DEVELOPER calls [facility] and faxes clinicals and signed medication list. It is reported that they can do an evaluation over the phone with family. Family later returns and states that patient has been accepted at [facility] and they can take him there now. CAR UNLOADER HELPER and RN prepare patient for d/c and place him in wheelchair. Paper RX for zyprexa is printed for family. Plan: patient to d/c with family upon medical clearance, family to transport patient via POV to respite memory care facility: [facility] in [place], patient to transfer to [facility] next week. CLARK GonzalezSW
== END 2022-11-08 15:10 | disposition home or self-care (01) ==
PROVIDERS: Emergency Medicine; Emergency Provider Emergency Medicine; PCP Internal Medicine
DX: G30.9 Alzheimer's disease, unspecified (principal); F02.80 Dementia in other diseases classified elsewhere, unspecified severity, without behavioral disturbance, psychotic disturbance, mood disturbance, and anxiety
CPT/HCPCS: 36415; 70450; 72125; 80048; 81003; 82962; 85025; 96372; 99284; 99285; J1200; J1630; J2060